=== PATIENT | male | born 1985 | race Two or more races ===

== ENCOUNTER 2020-10-08 11:35 | Inpatient (IN) | payer OTHER ==
[~2020-10-08] VITALS: Ht 188 cm; Wt 93.1 kg
[2020-10-08] MEDS ORDERED: AZITHROMYCIN 500MG/ 250ML 250 ML IV ONE (12:00)
[2020-10-08] MEDS ORDERED: ONDANSETRON HCL 4 MG/2 ML VIAL IV ONE (12:00)
[2020-10-08] MEDS ORDERED: ZINC SULFATE 220mg CAP or TAB PO ONE (12:00)
[2020-10-08] MEDS ORDERED: ASCORBIC ACID 500 MG TAB PO ONE (12:00)
[2020-10-08] MEDS ORDERED: methylPREDNISolone SOD SUCC 125 MG/2 ML VL IV ONE (12:00)
[2020-10-08 12:30] LABS: Basophils # (auto) 0 10 ^3/uL (0-0.2); Basophils % (auto) 0.4 % (0.0-2.0); Eosinophils # (auto) 0 10 ^3/uL (0-0.8); Hematocrit 46.5 % (41.0-53.0); Hemoglobin 15.8 g/dL (13.5-17.5); Lymphocytes % (auto) 20.8 % (10.0-50.0); Mean Corpuscular Hemoglobin 28.2 pg (28.0-32.0); Mean Corpuscular Hgb Conc. 33.9 g/dL (32.0-36.0); Monocytes # (auto) 0.3 10 ^3/uL (0-1.3); Monocytes % (auto) 7.5 % (0.0-12.0); Neutrophils # (auto) 3.3 10 ^3/uL (1.6-8.6); Neutrophils % (auto) 71.3 % (37.0-80.0); Nucleated Red Blood Cells % 0.5 %; Platelet Count (auto) 218 10^3/uL (140-450); White Blood Cell 4.6 10^3/uL (4.4-10.8)
[2020-10-08 12:48] LABS: Albumin 3.6 g/dL (3.4-5.0); BUN/Creatinine Ratio 17.6; Calcium 8.6 mg/dL (8.5-10.1); Potassium 3.7 mmol/L (3.5-5.1)
[2020-10-08 12:51] LABS: Bilirubin, Total 0.7 mg/dL (0.2-1.0); Total Protein 8.3 g/dL (6.4-8.2)
[2020-10-08 13:16] LABS: CRP High Sensitivity 9.63 mg/dL (< 0.3)
[2020-10-08] MEDS ORDERED: ENOXAPARIN SOD 100 MG/1 ML SYRINGE SC ONE (13:45)
[2020-10-08] MEDS ORDERED: MORPHINE SULF INJ 2 MG/ML SYRINGE 1ML IV PRN (17:45)
[2020-10-08] MEDS ORDERED: ONDANSETRON HCL 4 MG/2 ML VIAL IV PRN (17:45)
[2020-10-08] MEDS ORDERED: NITROGLYCERIN 0.4 MG SL TAB SL PRN (17:45)
[2020-10-08] MEDS: methylPREDNISolone SOD SUCC 125 MG/2 ML VL IV SCH (22:56)
[2020-10-08] MEDS: ASCORBIC ACID 500 MG TAB PO SCH (22:56)
[2020-10-09 06:18] LABS: Urine Bacteria FEW /hpf (None Seen); Urine Blood Negative /uL (Negative); Urine Hyaline Cast FEW /lpf (0 - 2); Urine Mucus FEW (None Seen); Urine Specific Gravity 1.031 (1.001-1.035); Urine WBC 2 /hpf (0 - 3)
[2020-10-09] MEDS: ENOXAPARIN SOD 40 MG/0.4 ML SYRINGE SC SCH (10:18)
[2020-10-09] MEDS: AZITHROMYCIN 250 MG TAB PO SCH (10:19)
[2020-10-09] MEDS: ASCORBIC ACID 500 MG TAB PO SCH ×2 (10:19→21:34)
[2020-10-09] MEDS: CHOLECALCIFEROL (VITD3) 1,000UNIT=25mCg TAB PO SCH (10:19)
[2020-10-09] MEDS: ZINC SULFATE 220mg CAP or TAB PO SCH (10:19)
[2020-10-09] MEDS: methylPREDNISolone SOD SUCC 125 MG/2 ML VL IV SCH ×2 (10:19→21:34)
[2020-10-09] MEDS: cefTRIAXone 1GM/50ML D5W 50 ML IV SCH (10:20)
[2020-10-09 16:58] VITALS: BP 124/85
--- NOTE | 2020-10-09 17:00 | NUR ---
Patient admitted with law enforcement escort, AOx4, calm and cooperative, [place] language only. Respirations WNL on RA, denies SOB. IV intact and patent. Intake assessment completed.
--- NOTE | 2020-10-09 19:40 | NUR ---
Opening Shift Note Assumed care of patient, awake and alert. No S/S of distress/SOB or pain. Guard at bedside. Fall and safety precautions in place. Call light within reach and able to use. Instructed on POC and to call for assist PRN, patient verbalized understanding and in agreement. Will continue to monitor for changes Q1hr and PRN.
[2020-10-09 22:00] VITALS: BP 124/76
[2020-10-10 05:00] VITALS: BP 107/69
--- NOTE | 2020-10-10 06:20 | NUR ---
SPUTUM SAMPLE SENT TO LAB PATIENT HAS NON-PRODUCTIVE COUGH. PATIENT ATTEMPTED (HIS) BEST TO OBTAIN RESPIRATORY QUALITY SAMPLE. RESPIRATORY/SPUTUM SAMPLE SENT TO LAB AT THIS TIME. WILL CONTINUE TO MONITOR.
[2020-10-10 09:00] VITALS: BP 122/70
[2020-10-10] MEDS: ZINC SULFATE 220mg CAP or TAB PO SCH (10:04)
[2020-10-10] MEDS: methylPREDNISolone SOD SUCC 125 MG/2 ML VL IV SCH (10:04)
[2020-10-10] MEDS: cefTRIAXone 1GM/50ML D5W 50 ML IV SCH (10:04)
[2020-10-10] MEDS: ASCORBIC ACID 500 MG TAB PO SCH (10:04)
[2020-10-10] MEDS: AZITHROMYCIN 250 MG TAB PO SCH (10:04)
[2020-10-10] MEDS: ENOXAPARIN SOD 40 MG/0.4 ML SYRINGE SC SCH (10:05)
[2020-10-10] MEDS: CHOLECALCIFEROL (VITD3) 1,000UNIT=25mCg TAB PO SCH (10:07)
[2020-10-10 13:16] VITALS: BP 125/74
[2020-10-10] MEDS ORDERED: CIPR500T4 PO (13:59)
[2020-10-10 14:30] VITALS: BP 125/74
--- NOTE | 2020-10-10 16:14 | NUR ---
Patient readied for discharge with law enforcement signing. All pt ed provided in Greek language. IV removed. Nameband removed. Awaiting transport.
== END 2020-10-10 16:44 | DRG 194 ==
LOC: EEVIPCON 11:35 → EDBD 11:35 → ER 11:35 → OVERFLOW 11:36 → WEST WING 10-09 15:48
PROVIDERS: ADMIT Internal Medicine; ATTEND Internal Medicine
DX: J18.9 Pneumonia, unspecified organism (principal); J98.11 Atelectasis; Z83.3 Family history of diabetes mellitus; Z86.19 Personal history of other infectious and parasitic diseases; Z20.828 Contact with and (suspected) exposure to other viral communicable diseases; E66.9 Obesity, unspecified; Z68.26 Body mass index [BMI] 26.0-26.9, adult
CPT/HCPCS: 36415; 71045; 80053; 81001; 82728; 83605; 85025; 85379; 86141; 87040; 87070; 87077; 87186; 87205; 87426; 93005; G0378; J0696; J2405